=== PATIENT | female | born 1965 | race Caucasian/White ===

== ENCOUNTER 2018-12-19 14:10 | Emergency (ER) | payer MEDICAID ==
[~2018-12-19] VITALS: Wt 68.1 kg
[2018-12-19] MEDS ORDERED: FAMOTIDINE 20 MG INJ IV STA (15:01)
[2018-12-19] MEDS ORDERED: LIDOCAINE/MYLANTA 40 ML BTL PO STA (15:01)
[2018-12-19] MEDS ORDERED: KETOROLAC 15 MG INJ IV STA (15:01)
[2018-12-19] MEDS ORDERED: DICY10CA40 PO (16:14)
[2018-12-19 16:20] VITALS: BP 143/81; PULSE 64; RESP 18
--- NOTE | 2018-12-19 16:22 | ERD ---
ER Documentation Chief Complaint Chief Complaint EPIGASTRIC PAIN FOR 2 DAYS. NAUSEA NO VOMITING. NO SOB OR CP. HPI This is a 53-year-old female who presents to the emergency room with epigastric abdominal pain for 2 days. Patient is Some mild nausea but no vomiting. She denies any chest pain or shortness of breath, no exertional symptoms. Patient's pain is in the epigastrium is somewhat cramping and worse with movement. She d enies any mid back pain. No fevers or chills travel sick contacts or antibiotics. ROS All systems reviewed and are negative except as per history of present illness. Medications Home Meds Active Scripts Dicyclomine HCl (Dicyclomine HCl) 10 Mg Capsule, 10 MG PO TID PRN for ABDOMINAL CRAMPING, #20 CAP Prov:MARTY PEREZ MD 12/19/18 Allergies Allergies: Coded Allergies: No Known Allergy (Unverified , 12/19/18) PMhx/Soc Medical and Surgical Hx: pt denies Medical Hx, pt denies Surgical Hx Hx Alcohol Use: No Hx Substance Use: No Hx Tobacco Use: No Smoking Status: Never smoker FmHx Family History: No diabetes Physical Exam Vitals Vital Signs Date Temp Pulse Resp B/P (MAP) Pulse Ox O2 O2 Flow FiO2 Time Delivery Rate 12/19/18 98.7 94 18 143/80 99 14:13 (101) Physical Exam General: Well developed, well nourished, no acute distress Head: Normocephalic, atraumatic. Eyes: Pupils equally reactive, EOM intact ENT: Moist mucous membranes Neck: Supple, no lymphadenopathy Respiratory: Lungs clear bilaterally, no distress Cardiovascular: RRR, no murmurs, rubs, or gallops Abdominal: Soft, non-tender, non-distended, no peritoneal signs, negative Sanders sign : Deferred MSK: No edema, no unilateral swelling, 5/5 strength Neurologic: Alert and oriented, moving all extremities, normal speech, no focal weakness, no cerebellar signs Skin: No rash Psych: Normal mood Result Diagram: 12/19/18 1510 12/19/18 1510 Results 24 hrs Laboratory Tests Test 12/19/18 15:10 White Blood Count 5.5 10^3/ul Red Blood Count 4.13 10^6/ul Hemoglobin 12.5 g/dl Hematocrit 37.0 % Mean Corpuscular Volume 89.6 fl Mean Corpuscular Hemoglobin 30.3 pg Mean Corpuscular Hemoglobin Concent 33.8 g/dl Red Cell Distribution Width 11.9 % Platelet Count 168 10^3/UL Mean Platelet Volume 10.3 fl Immature Granulocytes % 0.200 % Neutrophils % 66.1 % Lymphocytes % 24.2 % Monocytes % 8.5 % Eosinophils % 0.5 % Basophils % 0.5 % Nucleated Red Blood Cells % 0.0 /100WBC Immature Granulocytes # 0.010 10^3/ul Neutrophils # 3.7 10^3/ul Lymphocytes # 1.3 10^3/ul Monocytes # 0.5 10^3/ul Eosinophils # 0.0 10^3/ul Basophils # 0.0 10^3/ul Nucleated Red Blood Cells # 0.0 10^3/ul Sodium Level 139 mmol/L Potassium Level 4.4 mmol/L Chloride Level 106 mmol/L Carbon Dioxide Level 27 mmol/L Anion Gap 6 Blood Urea Nitrogen 13 mg/dl Creatinine 0.57 mg/dl Est Glomerular Filtrat Rate mL/min > 60 mL/min Glucose Level 101 mg/dl Calcium Level 9.9 mg/dl Total Bilirubin 0.6 mg/dl Direct Bilirubin 0.00 mg/dl Indirect Bilirubin 0.6 mg/dl Aspartate Amino Transf (AST/SGOT) 28 IU/L Alanine Aminotransferase (ALT/SGPT) 32 IU/L Alkaline Phosphatase 101 IU/L Troponin I < 0.012 ng/ml Total Protein 7.3 g/dl Albumin 4.0 g/dl Globulin 3.30 g/dl Albumin/Globulin Ratio 1.21 Lipase 205 U/L Current Medications Medications Dose Sig/Michael Start Time Status Last (Trade) Ordered Route PRN Stop Time Admin Dose Reason Admin Famotidine 20 mg ONCE STAT 12/19/18 DC 12/19/18 (Pepcid Iv) IV 15:01 15:13 12/19/18 15:02 40 ml ONCE STAT 12/19/18 DC 12/19/18 Miscellaneous PO 15:01 15:13 Medication 12/19/18 15:02 (Gi Cocktail (2)) Ketorolac 15 mg ONCE STAT 12/19/18 DC 12/19/18 Tromethamine IV 15:01 15:13 (Toradol) 12/19/18 15:02 Procedures/MDM EKG, MONITORS, & DIAGNOSTIC IMAGING: EKG: I reviewed and interpreted a 12-lead EKG. Rhythm: Normal sinus rhythm ST Changes: No contiguous ST segment elevations T waves: No contiguous T wave inversions Impression: No evidence of acute cardiac ischemia LAB INTERPRETATION: I reviewed the laboratory testing and it shows no evidence of acute process MEDICAL DECISION MAKING: The patient's presentation is consistent with nonspecific epigastric abdominal pain. Her abdominal exam is benign without signs or symptoms concerning for acute hepatobiliary obstruction, acute cholecystitis. The patient has no chest pain no exertional symptoms, very low pretest probability for cardiac etiology though EKG and troponin would be reasonable. Patient's abdomen is soft and nontender without concern for acute intra-abdominal process such as bowel obstruction or acute appendicitis. No indication for CT imaging at this time. ER COURSE: * Laboratory testing and diagnostic imaging is unrevealing * Patient given a GI cocktail with dramatic improvement of symptomatology * At this point the patient can be safely discharged home. Repeat abdominal exam is benign. Outpatient follow-up with primary care physician recommended. Return precautions discussed. CONSULTATION: None DISPOSITION PLAN: The patient does not have an identifiable emergent medical condition that warrants inpatient hospitalization at this time. The patient is deemed safe for discharge with outpatient follow-up. We discussed follow up with the patient's primary care doctor within 24 to 48 hours as needed. We also discussed return to the emergency room for worsening symptoms or worsening condition. Outpatient referral: None required Discharge Medications: Bentyl Departure Diagnosis: Primary Impression: Epigastric abdominal pain Condition: Stable Patient Instructions: Epigastric Pain (Uncertain Cause) [facility]errals[facility] Usted se robles hecho un examen mdico de control que le indica que no est en jared condicin que requiera tratamiento urgente en el Departamento de Emergencia. Un estudio ms profundo y el tratamiento de alcantar condicin pueden esperar sin ningn riesgo hasta que usted sea atendida/o en el consultorio de alcantar mdico o jared clnica. Es responsabilidad suya arreglar jared dayana para el seguimiento del manuel. MANEJO DE CONDICIONES NO URGENTES EN EL FUTURO 1) Si usted tiene un mdico de atencin primaria: Usted debera llamar a alcantar mdico de atencin primaria antes de venir al departamento de emergencia. Despus de las horas de consultorio, alcantar doctor o alcantar asociado/a est disponible por telfono. El mdico o enfermero de annmarie en el servicio telefnico puede asesorarle por cheryl medio para atender el problema, o manuel contrario se puede programar jared dayana. 2) Si usted no tiene un mdico de atencin primaria: Llame al mdico o clnica de referencia que aparece abajo lucho las horas de consultorio para hacer jared dayana para que le vean. CLINICAS: [facility] [phone] [facility] [phone] [address] [facility] [phone] [address] [facility] [place] [id number] [phone] [facility]. [facility] [phone] [address] [facility]. [phone] [facility] () Usted se robles hecho un examen mdico de control que le indica que no est en jared condicin que requiera tratamiento urgente en el Departamento de Emergencia. Un estudio ms profundo y el tratamiento de alcantar condicin pueden esperar sin ningn riesgo hasta que usted sea atendida/o en el consultorio de alcantar mdico o jared clnica. Es responsabilidad suya arreglar jared dayana para el seguimiento del manuel. MANEJO DE CONDICIONES NO URGENTES EN EL FUTURO 1) Si usted tiene un mdico de atencin primaria: Usted debera llamar a alcantar mdico de atencin primaria antes de venir al departamento de emergencia. Despus de las horas de consultorio, alcantar doctor o alcantar asociado/a est disponible por telfono. El mdico o enfermero de annmarie en el servicio telefnico puede asesorarle por cheryl medio para atender el problema, o manuel contrario se puede programar jared dayana. 2) Si usted no tiene un mdico de atencin primaria: Llame al mdico o condado institucions de referencia que aparece abajo lucho las horas de consultorio para hacer jared dayana para que le vean. SI USTED NO PUEDE PAGAR PARA ROSMERY UN MEDICO puede ir a: [facility] [address] [place] [address] [facility] [address] [place] [address] [facility] [address] [place] [address] [address] [address] [place] [phone] Additional Instructions: Call your primary care doctor TOMORROW for an appointment during the next [address].Tell the receptionist secretary that you were referred from this facility.See the doctor sooner or return here if your condition worsens before your appointment time. MARTY PEREZ MD Dec 19, 2018 16:22
== END 2018-12-19 16:22 | disposition home or self-care (01) ==
LOC: E/R 14:10
DX: R10.13 Epigastric pain (principal)
CPT/HCPCS: 80053; 83690; 84484; 85025; 93005; 96374; 96375; J1885; Z7502; Z7610